=== PATIENT | female | born 1960 | race Caucasian/White ===

== ENCOUNTER 2020-10-07 14:27 | Emergency (ER) | payer BC, OTHER ==
[~2020-10-07] VITALS: Ht 165.1 cm; Wt 102.5 kg
[~2020-10-07 14:27] MED LIST: CLIN300C3 PO; NAPR-243 PO; TRAM-21 PO
--- NOTE | 2020-10-07 15:10 | ED Abdominal Pain ---
General Chief Complaint: Abdominal/GI Problems Stated Complaint: ABDOMINAL PAIN Nursing Triage Note: PT AMBULATES TO ROOM #5 W/CO ABD DISCOMFORT. PT REPORTS SINCE 10/05/20 SHE HAS BEEN EXPERIENCING CONSTANT LOWER, MEDIAL ABD DISCOMFORT THAT IS MADE WORSE UPON URINATION OR WHEN PASSING A BOWEL MOVEMENT. DENIES FUTHER SX. Source of Information: Patient Exam Limitations: No Limitations History of Present Illness Date Seen by Provider: Oct 07, 2020 Time Seen by Provider: 15:09 Initial Comments To ER with suprapubic/left lower quadrant abdominal pain x72 hours. No bowel changes no dysuria. However, straining to have a bowel movement or to urinate does increase her pain. No fevers or chills no nausea or vomiting. Timing/Duration: 2-3 Days Severity/Quality: Moderate Location: Generalized Abdomen Radiation: No Radiation Activities at Onset: None Associated Symptoms: No Nausea/Vomiting Allergies and Home Medications Allergies Coded Allergies: red dye (Unverified Allergy, Unknown, 04/30/14) Home Medications Clindamycin Hcl 300 Mg Capsule, 1 EACH PO QID Prescribed by: HEBER JOSEPH on 04/30/14 1041 Naproxen 500 Mg Tablet, 1 EACH PO TID PRN for PAIN FOR PAIN Prescribed by: HEBER JOSEPH on 04/30/14 1041 Tramadol Hcl 50 Mg Tablet, 50 MG PO Q4H Prescribed by: HEBER JOSEPH on 04/30/14 1041 Patient Home Medication List Home Medication List Reviewed: Yes Review of Systems Review of Systems Constitutional: see HPI EENTM: No Symptoms Reported Respiratory: No Symptoms Reported Cardiovascular: No Symptoms Reported Gastrointestinal: See HPI, Abdominal Pain Genitourinary: No Symptoms Reported Musculoskeletal: no symptoms reported Skin: no symptoms reported Psychiatric/Neurological: No Symptoms Reported Endocrine: No Symptoms Reported Hematologic/Lymphatic: No Symptoms Reported Past [id number] Hx Seasonal Allergies Seasonal Allergies: No Past Medical History Hysterectomy 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 oz. 99.501964dm; BMI Method: General Appearance: WD/WN, no apparent distress HEENT: PERRL/EOMI, normal ENT inspection Neck: non-tender, full range of motion Respiratory: no respiratory distress, no accessory muscle use Cardiovascular: regular rate, rhythm, no murmur Gastrointestinal: normal bowel sounds, soft, tenderness Neurologic/Psychiatric: alert, normal mood/affect, oriented x 3 Skin: normal color, warm/dry Progress/Results/Core Measures Results/Orders Lab Results Laboratory Tests Test 10/07/20 15:00 10/07/20 15:22 Range/Units White Blood Count 10.2 4.3-11.0 10^3/uL Red Blood Count 4.73 3.80-5.11 10^6/uL Hemoglobin 14.4 11.5-16.0 g/dL Hematocrit 43 35-52 % Mean Corpuscular Volume 91 80-99 fL Mean Corpuscular Hemoglobin 30 25-34 pg Mean Corpuscular Hemoglobin Concent 34 32-36 g/dL Red Cell Distribution Width 13.6 10.0-14.5 % Platelet Count 270 130-400 10^3/uL Mean Platelet Volume 12.2 9.0-12.2 fL Immature Granulocyte % (Auto) 0 % Neutrophils (%) (Auto) 51 42-75 % Lymphocytes (%) (Auto) 38 12-44 % Monocytes (%) (Auto) 8 0-12 % Eosinophils (%) (Auto) 3 0-10 % Basophils (%) (Auto) 1 0-10 % Neutrophils # (Auto) 5.2 1.8-7.8 10^3/uL Lymphocytes # (Auto) 3.8 1.0-4.0 10^3/uL Monocytes # (Auto) 0.8 0.0-1.0 10^3/uL Eosinophils # (Auto) 0.3 0.0-0.3 10^3/uL Basophils # (Auto) 0.1 0.0-0.1 10^3/uL Immature Granulocyte # (Auto) 0.0 0.0-0.1 10^3/uL Sodium Level 138 135-145 MMOL/L Potassium Level 4.5 3.6-5.0 MMOL/L Chloride Level 104 98-107 MMOL/L Carbon Dioxide Level 21 21-32 MMOL/L Anion Gap 13 5-14 MMOL/L Blood Urea Nitrogen 11 7-18 MG/DL Creatinine 0.79 0.60-1.30 MG/DL Estimat Glomerular Filtration Rate 74 BUN/Creatinine Ratio 14 Glucose Level 96 70-105 MG/DL Calcium Level 9.6 8.5-10.1 MG/DL Corrected Calcium 9.5 8.5-10.1 MG/DL Total Bilirubin 0.2 0.1-1.0 MG/DL Aspartate Amino Transf (AST/SGOT) 17 5-34 U/L Alanine Aminotransferase (ALT/SGPT) 12 0-55 U/L Alkaline Phosphatase 116 40-136 U/L Total Protein 7.8 6.4-8.2 GM/DL Albumin 4.1 3.2-4.5 GM/DL Urine Color YELLOW Urine Clarity CLEAR Urine pH 6.0 5-9 Urine Specific Turner <=1.005 1.016-1.022 Urine Protein NEGATIVE NEGATIVE Urine Glucose (UA) NEGATIVE NEGATIVE Urine Ketones NEGATIVE NEGATIVE Urine Nitrite NEGATIVE NEGATIVE Urine Bilirubin NEGATIVE NEGATIVE Urine Urobilinogen 0.2 < = 1.0 MG/DL Urine Leukocyte Esterase TRACE H NEGATIVE Urine RBC (Auto) TRACE-I NEGATIVE Urine RBC NONE /HPF Urine WBC RARE /HPF Urine Squamous Epithelial Cells 0-2 /HPF Urine Crystals NONE /LPF Urine Bacteria NEGATIVE /HPF Urine Casts NONE /LPF Urine Mucus NEGATIVE /LPF Urine Culture Indicated NO My Orders Orders - TERRELL RIVERA APRN Cbc With Automated Diff (10/07/20 15:07) Comprehensive Metabolic Panel (10/07/20 15:07) Ed Iv/Invasive Line Start (10/07/20 15:07) Ct Abd/Pelvis Wo(Kidney Stone) (10/07/20 15:07) Ketorolac Injection (Toradol Injection) (10/07/20 15:15) Medications Given in ED Current Medications Medications Dose Ordered Sig/Chrystal Route Start Time Stop Time Status Last Admin Dose Admin Ketorolac Tromethamine 15 mg ONCE ONCE IVP 10/07/20 15:15 10/07/20 15:16 DC 10/07/20 16:06 15 MG Departure Communication (Admissions) NAME: FERNANDO BRUCE [facility] REC#: [id number] PT STATUS: REG ER : 1960 PHYSICIAN: TERRELL RIVERA APRN ADMIT DATE: 10/07/20/ER Draft Date of Exam:10/07/20 CT ABD/PELVIS WO(KIDNEY STONE) INDICATION: Mid abdominal pain x 2 days. EXAMINATION: CT abdomen and pelvis without contrast dated 10/07/2020. FINDINGS: There is mild dependent bibasilar atelectasis. The nonopacified liver and spleen are unremarkable. Gallbladder, pancreas and adrenal glands are unremarkable. Kidneys unremarkable. No hydronephrosis. No ureteral stone. Appendix unremarkable. There are a few minimally prominent small bowel loops within the left mid abdomen, nonspecific in nature, likely due to timing and peristalsis although a mild enteritis is not excluded. Correlate with symptoms. No obstructive process is seen. There is mild fat stranding within the pelvis. A few adjacent diverticuli are noted within the sigmoid colon. Findings could be due to early diverticulitis. Correlate with clinical symptoms. No adjacent free air or abscess is appreciated. No significant free fluid. There is no acute osseous abnormality. IMPRESSION: 1. Mild fat stranding within the pelvis surrounding the sigmoid colon, likely on the basis of mild early diverticulitis. Correlate with symptoms. No free air or abscess. 2. Minimal prominence of several small bowel loops in the left mid abdomen which could be incidental or due to a mild enteritis, correlate with symptoms. Other incidental findings as described above. Dictated on workstation # [id number] Dict: 10/07/20 1623 Trans: 10/07/20 1637 [facility] [id number] Interpreted by: MASHA CORDON MD Electronically signed by: Impression Primary Impression: Sigmoid diverticulitis Disposition: 01 HOME, SELF-CARE Condition: Stable Departure-Patient Inst. Decision time for Depature: 15:10 Referrals: JAK ZIMMERMAN MD (PCP/Family) Primary Care Physician Patient Instructions: Diverticulitis Add. Discharge Instructions: 1. Medication as directed. Return to ER for any concerns. Follow-up with your doctor next week. Clear liquids for 24 hours. All discharge instructions reviewed with patient and/or family. Voiced understanding. Scripts Hydrocodone/Acetaminophen (Hydrocodone-Acetamin 5-325 mg) 1 Each Tablet 1 TAB PO Q4H PRN for PAIN-MODERATE (5-7), #10 TAB Prov: TERRELL RIVERA APRN 10/07/20 Amoxicillin/Potassium Clav (Augmentin 875-125 Tablet) 1 Each Tablet 1 EACH PO BID, #14 TAB 0 Refills Prov: TERRELL RIVERA APRN 10/07/20 TERRELL RIVERA APRN Oct 07, 2020 15:10
[2020-10-07] MEDS ORDERED: KETOROLAC 30 MG/ML VIAL IVP ONE (15:15)
[2020-10-07 15:17] LABS: ALBUMIN 4.1 GM/DL (3.2-4.5); POTASSIUM 4.5 MMOL/L (3.6-5.0)
[2020-10-07 15:18] LABS: CALCIUM 9.6 MG/DL (8.5-10.1)
[2020-10-07 15:19] LABS: TOTAL PROTEIN 7.8 GM/DL (6.4-8.2)
[2020-10-07 15:21] LABS: BILIRUBIN,TOTAL 0.2 MG/DL (0.1-1.0)
[2020-10-07 15:23] LABS: BASOPHILS # (AUTO) 0.1 10^3/uL (0.0-0.1); BASOPHILS % (AUTO) 1 % (0-10); CREATININE SERUM 0.79 MG/DL (0.60-1.30); EOSINOPHILS # (AUTO) 0.3 10^3/uL (0.0-0.3); EOSINOPHILS % (AUTO) 3 % (0-10); HEMATOCRIT 43 % (35-52); HEMOGLOBIN 14.4 g/dL (11.5-16.0); LYMPHOCYTES # (AUTO) 3.8 10^3/uL (1.0-4.0); LYMPHOCYTES % (AUTO) 38 % (12-44); MEAN CORPUSCULAR HEMOGLOBIN 30 pg (25-34); MEAN CORPUSCULAR HGB CONC 34 g/dL (32-36); MEAN CORPUSCULAR VOLUME 91 fL (80-99); MEAN PLATELET VOLUME 12.2 fL (9.0-12.2); MONOCYTES # (AUTO) 0.8 10^3/uL (0.0-1.0); MONOCYTES % (AUTO) 8 % (0-12); NEUTROPHILS # (AUTO) 5.2 10^3/uL (1.8-7.8); NEUTROPHILS % (AUTO) 51 % (42-75); PLATELET COUNT 270 10^3/uL (130-400); WHITE BLOOD COUNT 10.2 10^3/uL (4.3-11.0)
[2020-10-07 15:29] LABS: BILIRUBIN,URINE NEGATIVE (NEGATIVE); CLARITY,URINE CLEAR; COLOR,URINE YELLOW; GLUCOSE, URINE (UA) NEGATIVE (NEGATIVE); KETONES,URINE NEGATIVE (NEGATIVE); LEUKOCYTE ESTERASE ,URINE TRACE (NEGATIVE); NITRITE,URINE NEGATIVE (NEGATIVE); PROTEIN,URINE NEGATIVE (NEGATIVE)
[2020-10-07 15:35] LABS: BACTERIA,URINE NEGATIVE /HPF; SQUAMOUS EPITHELIAL CELL,UR 0-2 /HPF; WBC,URINE RARE /HPF
--- NOTE | 2020-10-07 16:37 | Diagnostic Imaging Report ---
INDICATION: Mid abdominal pain x 2 days. EXAMINATION: CT abdomen and pelvis without contrast dated 10/07/2020. FINDINGS: There is mild dependent bibasilar atelectasis. The nonopacified liver and spleen are unremarkable. Gallbladder, pancreas and adrenal glands are unremarkable. Kidneys unremarkable. No hydronephrosis. No ureteral stone. Appendix unremarkable. There are a few minimally prominent small bowel loops within the left mid abdomen, nonspecific in nature, likely due to timing and peristalsis although a mild enteritis is not excluded. Correlate with symptoms. No obstructive process is seen. There is mild fat stranding within the pelvis. A few adjacent diverticuli are noted within the sigmoid colon. Findings could be due to early diverticulitis. Correlate with clinical symptoms. No adjacent free air or abscess is appreciated. No significant free fluid. There is no acute osseous abnormality. IMPRESSION: 1. Mild fat stranding within the pelvis surrounding the sigmoid colon, likely on the basis of mild early diverticulitis. Correlate with symptoms. No free air or abscess. 2. Minimal prominence of several small bowel loops in the left mid abdomen which could be incidental or due to a mild enteritis, correlate with symptoms. Other incidental findings as described above. Dictated by: Dictated on workstation # [id number]
[2020-10-07] MEDS ORDERED: ACHD5005 PO (16:40)
[2020-10-07] MEDS ORDERED: AMOX-358 PO (16:40)
[2020-10-07] MEDS ORDERED: AUGMENTIN 875 MG TAB (AMOXICILLIN/CLAVULANATE) PO SCH (16:45)
[2020-10-07 16:53] VITALS: BP 152/97
== END 2020-10-07 16:51 | disposition home or self-care (01) ==
LOC: EDUNIT# 14:27 → ER 14:29
DX: K57.32 Diverticulitis of large intestine without perforation or abscess without bleeding (principal); I10 Essential (primary) hypertension
CPT/HCPCS: 36415; 74176; 80053; 81000; 85025